=== PATIENT | female | born 1965 | race Caucasian/White ===

== ENCOUNTER 2018-05-01 20:11 | Emergency (ER) | payer MEDICAID ==
[~2018-05-01] VITALS: Ht 165.1 cm; Wt 94.3 kg
[2018-05-01 20:16] VITALS: BP 149/93
== END 2018-05-01 21:52 | disposition home or self-care (01) ==
LOC: ED 20:11
DX: H11.31 Conjunctival hemorrhage, right eye (principal); I10 Essential (primary) hypertension; E05.90 Thyrotoxicosis, unspecified without thyrotoxic crisis or storm; E78.00 Pure hypercholesterolemia, unspecified

== ENCOUNTER 2018-12-30 10:04 | Emergency (ER) | payer MEDICAID ==
[~2018-12-30] VITALS: Ht 165.1 cm; Wt 99.1 kg
[2018-12-30 10:12] VITALS: Ht 165.1 cm; Wt 99.1 kg
[2018-12-30 13:37] VITALS: BP 144/85
== END 2018-12-30 13:37 | disposition home or self-care (01) ==
LOC: ED 10:04
DX: M54.5 Low back pain (principal); I10 Essential (primary) hypertension; E03.9 Hypothyroidism, unspecified; E78.00 Pure hypercholesterolemia, unspecified; Z90.49 Acquired absence of other specified parts of digestive tract
CPT/HCPCS: J1885